=== PATIENT | female | born 1965 | race Caucasian/White ===

== ENCOUNTER → 2016-07-11 | Day surgery (SDC) | payer OTHER ==
[~2016-07-11] MED LIST: ABILIFY20 MG PO; ADIPEX-P37.5 M1 PO; BUPROPION XL300 MG PO; CELEBREX PO; DAYPRO600 M1 PO; HYDROCODON-ACE1 EAC1 PO; IMMODIUM1 MG/5 ML PO; LORTAB 10/500 T1 TAB PO; MOBIC PO; NEXIUM PO; OXYCODON HCL-1 UDTA1 PO; OXYCODONE-ACET1 EACH PO; PERCOCET 10/3251 TAB PO; PHENTERMINE H37.5 M1 PO; PRILOSEC PO; PRILOSEC20 M1 PO; PROZAC PO; PROZAC40 MG PO; QSYMIA 15 MG-91 EACH PO; WELLBUTRIN PO; XANAX0.5 M1 PO; [UNRECOGNIZED DRUG - OTHER] PO
--- NOTE | ~2016-07-11 | OR ---
Unit #: [id number] #: [id number] Patient: AWILDA LENZ [id number] [address] [place], [place] [address] [id number] MR#: [id number] NAME: AWILDA LENZ ROOM: Date of Procedure: 07/11/2016 Admission Date: 07/11/2016 Surgeon: Lorne Juarez M.D. : 1965 Attending Physician: Lorne Juarez M.D. Primary Care Physician: Justus Hernandez M.D. SUR[facility] CENTER OPERATIVE NOTE JOB NOTE: CC: DR. HERNANDEZ. PROCEDURE PERFORMED Lumbar epidural steroid injection under x-ray guided needle placement with provider administered conscious sedation. PREOPERATIVE DIAGNOSES 1. Acute lumbar radiculitis. 2. Spinal stenosis, lumbosacral spine. 3. Herniated disk, L5-S1. 4. Degenerative joint disease, lumbosacral spine. 5. Degenerative disk disease, lumbosacral spine. INDICATIONS FOR PROCEDURE The patient presents today with a longstanding history of chronic lumbar radicular pain secondary to her underlying degenerative processes. She is generally fairly well managed medically with ongoing continuous conservative measures; however, she does occasionally experience exacerbations, which breakthrough this ongoing continuous therapy and to date have only responded to epidural steroid injections. Her usual amount of relief is 80% to 100% for 8 to 10 weeks. She is currently presenting today with a 2 to 4-week history of return of her radicular pain in a pattern similar to the past and similar to the past this pattern has broken through her ongoing continuous measures. After discussing risks and benefits of proceeding today with an L5-S1 lumbar epidural, the patient agreed this would be the appropriate course of action. DESCRIPTION OF PROCEDURE She was then taken to the operating room, where she was prepped and draped in sterile manner. Standard monitors were applied. She was sedated with 2 mg of IV Versed initially and required additional 2 mg of IV Versed throughout the duration of procedure. Lumbar epidural space was accessed at the L5-S1 level using loss of resistance technique and x-ray guidance. Needle placement was confirmed with the injection of 2 mL of Omnipaque. There was good superior and inferior flow at this L5-S1 needle placement. Total x-ray time was 4 seconds. Following successful needle placement confirmation, the patient received an injectate containing 4 mL of normal saline and 80 mg of methylprednisolone. She tolerated this procedure well. She was discharged home with followup instructions, which include an offer to return to this clinic as early as 10/17/2016 if we could be of further service to her. She was instructed if she is asymptomatic at that time to simply not keep that appointment and to follow up at such point in future, so we could be of further service to her. Unit #: [id number] #: [id number] Patient: AWILDA LENZ Dictated by... Demetrius Weaver/bo TD: 07/12/2016 00:54 JOB #: [id number] SUR[facility]ENTER OPERATIVE NOTE Page 1 of 1 X Thomas Juarez MD X PROCEDURE OPERATIVE NOTE
== END | disposition home or self-care (01) ==
LOC: CCSC 09:36
DX: G89.29 Other chronic pain (principal); M51.17 Intervertebral disc disorders with radiculopathy, lumbosacral region; M47.27 Other spondylosis with radiculopathy, lumbosacral region; M48.07 Spinal stenosis, lumbosacral region; K21.9 Gastro-esophageal reflux disease without esophagitis; Z87.01 Personal history of pneumonia (recurrent); Z90.49 Acquired absence of other specified parts of digestive tract; Z90.89 Acquired absence of other organs; Z98.51 Tubal ligation status; Z98.890 Other specified postprocedural states
CPT/HCPCS: J1040; J2250